=== PATIENT | female | born 1980 | race Caucasian/White ===

== ENCOUNTER → 2018-06-19 10:42 | Outpatient (CLI) | payer MEDICAID, SELFPAY ==
--- NOTE | 2018-06-19 10:50 | MRI_ITS ---
STUDY: MRI BRAIN WITHOUT CONTRAST REASON FOR EXAM: Female, 38 years old. seizures X 1 year. TECHNIQUE: Standardized multiplanar fat and water weighted pulse sequences were obtained. COMPARISON: March 19, 2016 CT of the head FINDINGS: Normal size of the ventricles and extra-axial spaces for the patient's age. Normal white matter tracts of the supratentorial brain. Normal bilateral basal ganglia. Normal thalami. There is no extra-axial fluid accumulation. Normal flow voids within the major intracranial circulation suggesting patency by spin echo criteria. Normal sella turcica, pituitary gland, infundibular stalk, optic chiasm and hypothalamus. Normal tectal plate and pineal gland. Normal midbrain, alina and medulla. Again noted is a stable approximately 8 mm tonsillar ectopia without distortion of the brainstem. Normal basal cisterns. Normal bilateral temporal bones. Normal bilateral internal auditory canals. No demonstrated orbital abnormality, within the constraints of a routine brain study. Normal visualized paranasal sinuses. Normal calvarium and skull base. Normal visualized soft tissue structures. Normal visualized upper cervical spine. MRI/Brain without Contrast IMPRESSION: Tonsillar ectopia. Otherwise unremarkable examination. Electronically Signed: Evette Yadav MD at 8:26 EST Tel , Service support ,
== END ==
PROVIDERS: Family Provider Family Medicine; PCP Family Medicine; Referring Provider Psychiatry & Neurology Neurology; Visit Provider Psychiatry & Neurology Neurology
DX: R56.9 Unspecified convulsions (principal)
CPT/HCPCS: 70551

== ENCOUNTER → 2018-06-20 08:46 | Outpatient (CLI) | payer MEDICAID, SELFPAY ==
--- NOTE | 2018-06-23 13:33 | EEG ---
- Electroencephalogram Date of service 06/20/18 This is an 18 channel electroencephalogram performed utilizing the international 1020 electrode placement protocol on this 38-year-old female with a history of spells described as zoning out associated with rocking lasting approximately 3 minutes. Background activity is 9 Hz symmetrically in the posterior leads which attenuates with eye-opening. Hyperventilation is performed for 3 minutes with good effort with no lateralizing or epileptiform changes in the post hyperventilatory phase is unremarkable. EKG is normal sinus rhythm throughout the recording and photic stimulation generates a normal symmetric driving response in the posterior leads. The patient remained awake throughout the recording without lateralizing or epileptiform changes. Impression: Normal awake electroencephalogram
== END ==
PROVIDERS: Family Provider Family Medicine; PCP Family Medicine; Referring Provider Psychiatry & Neurology Neurology; Visit Provider Psychiatry & Neurology Neurology
DX: R56.9 Unspecified convulsions (principal)
CPT/HCPCS: 95819

== ENCOUNTER 2019-03-31 19:18 | Emergency (ER) | payer MEDICAID, SELFPAY ==
[2019-03-31 19:19] VITALS: BP 124/96; PULSE 117; RESP 15; TEMP 37; O2SAT 97; BMI 27.1
--- NOTE | 2019-03-31 21:32 | RAD_ITS ---
STUDY: X-RAY - LUMBAR SPINE REASON FOR EXAM: Female, 38 years old. Injury 2 days ago TECHNIQUE: 3 view(s) of the lumbar spine were obtained. COMPARISON: None FINDINGS: Normal lumbar lordosis. There is no substantial scoliosis. There is a normal alignment of the vertebrae. Normal vertebral bodies and endplates. Normal disc space heights. The soft tissue structures are unremarkable. RAD/Lumbar Spine 2 or 3 Views IMPRESSION: Normal x-ray examination of the lumbar spine. Electronically Signed: Rc Quiroz MD at 21:55 EST , Service support ,
[2019-03-31] MEDS: HYDROcodone Bitartrate/Apap 5/325 Tablet PO (21:47)
--- NOTE | 2019-03-31 22:10 | ED.VISSUMM ---
- ER Visit Summary Date of Service: 03/31/19 Chief Complaint: Back pain History of Present Illness: The patient is a 38 F who presents with back pain that began after a fall 2 days ago. Patient states she slipped on ice and fell backwards and landed on her low back. Patient states the pain is sharp and stabbing. Patient states the pain is worse with any movement and with weightbearing on her right leg. Patient states nothing seems to help with the pain. Patient states the pain radiates down her right leg. Patient denies any bowel or bladder changes. Patient denies any saddle anesthesia. Patient does admit to some tingling down her right leg. Physical Examination: Vital signs are stable. Patient is afebrile. Patient is in no acute distress. Musculoskeletal exam reveals tenderness over the lumbar spine and paraspinal area. There is no edema or ecchymosis noted. There are no abrasions noted. There is no bony crepitance or step-off noted. Range of motion was slightly limited in all motions of the lumbar spine secondary to pain. Strength is 5/5 bilaterally in the lower extremities. Deep tendon reflexes are 2+/4 bilaterally in the lower extremities. There are no sensory deficits noted. Test Results: X-rays of the lumbar spine were obtained. There is no acute fracture, spondylolisthesis or spondylolysis. These were interpreted by the radiologist and reviewed by myself. Emergency Department Course and Treatment: Patient was given a dose of Souris here. Patient was instructed to use ice to the area. Patient was instructed to follow-up with her primary care physician in 5 to 7 days. Patient was given a prescription for Naprosyn. Patient understood and was agreeable with the plan. All questions were answered. Disposition: Discharge home Impression: Acute lumbar strain This note was generated with [employer] dictation software. It may contain incorrect words, spelling, and punctuation that were not noted in review of the chart prior to signing ED Disposition - Plan for ED Patient: Disposition: Home or Assisted Living Diagnosis: Acute lumbar myofascial strain Instructions: Back Sprain/Strain Prescriptions: Naproxen [Naprosyn] 500 mg PO BID PRN #20 tab Prescription Printed Referrals: Judit Vilchis, AMANDA-C [Primary Care Provider] - 5-7 Days
[2019-03-31 22:25] VITALS: BP 114/89; PULSE 89; RESP 16; O2SAT 99
== END 2019-03-31 22:26 | disposition home or self-care (01) ==
PROVIDERS: Emergency Provider Emergency Medicine; Family Provider Nurse Practitioner Family; PCP Nurse Practitioner Family
DX: S39.012A Strain of muscle, fascia and tendon of lower back, initial encounter (principal); W00.0XXA Fall on same level due to ice and snow, initial encounter; Y93.9 Activity, unspecified; I10 Essential (primary) hypertension; J45.909 Unspecified asthma, uncomplicated; F31.9 Bipolar disorder, unspecified; F17.200 Nicotine dependence, unspecified, uncomplicated; Z79.899 Other long term (current) drug therapy
CPT/HCPCS: 72100; 99283

== ENCOUNTER 2019-07-11 22:24 | Emergency (ER) | payer MEDICAID, SELFPAY ==
[2019-07-11 22:27] VITALS: BP 147/79; PULSE 102; RESP 20; TEMP 36.6; O2SAT 99; BMI 28.3
[2019-07-11] MEDS: Acetaminophen 500 MG Tablet 1000 MG PO (23:35)
[2019-07-11] MEDS: Ibuprofen 600 MG Tablet PO (23:35)
--- NOTE | 2019-07-11 23:45 | RAD_ITS ---
STUDY: X-RAY CHEST REASON FOR EXAM: Female, 39 years old patient with cough for two days and shortness of breath. TECHNIQUE: PA and lateral views of the chest. COMPARISON: March 19, 2016. FINDINGS: The lungs are clear and expanded. There is pleural fibrotic thickening of the pulmonary lung apices. There is borderline cardiomegaly. Normal mediastinum and marley. Normal visualized pulmonary arteries. Normal visualized aortic arch and descending thoracic aorta. There is demineralization of the osseous structures. Normal visualized ribs, clavicles, and shoulders. There is no demonstrated abnormality of the visualized soft tissue structures of the upper abdomen. Surgical clips are visible in the right upper quadrant. RAD/Chest PA and Lateral IMPRESSION: No radiographic evidence of acute cardiopulmonary disease. Electronically Signed: Aisha Monroe MD at 0:25 EST , Service support ,
[2019-07-12 00:22] LABS: Color, Urine Yellow (Yellow); Glucose, Dipstick Normal (Normal); Ketone-Dipstick 5 mg/dl (Negative); Leukocyte Esterase-Dipstick 500 /ul (Negative); Nitrite-Dipstick Negative (Negative); Occult Blood-Urine 250 /ul (Negative); Protein-Dipstick 30 mg/dl (Negative); Urine Bilirubin Dipstick Negative (Negative); Urine Clarity Cloudy (Clear); Urine Urobilinogen 1 mg/dl (Normal)
[2019-07-12 00:36] LABS: Red Blood Cells-Urine 25-50 SEEN /hpf (0-5); Squamous Epithelial Cells - UA 5-10 SEEN /hpf (5-10); White Blood Cells 50-100 SEEN /hpf (0-5)
[2019-07-12 00:37] LABS: Bacteria 1+ /hpf (None Seen); Mucous, Urine 1+ /hpf (<or=2+)
--- NOTE | 2019-07-12 00:50 | ED.DCSUM_ITS ---
- ER Visit Summary Date of Service: 07/12/19 Chief Complaint: Cough History of Present Illness: The patient is a [address] Vilchis. She has a cough began 2 days ago. She had a fever to 102 degrees. She has bilateral ear pain and a sore throat. She is also had congestion. She denies any shortness of breath. She does have diffuse myalgias and arthralgias. She also reports she has dysuria and hematuria that began today. She did not get a flu shot. She is status post hysterectomy. Physical Examination: Vitals: Stable. Afebrile. General: Well-nourished and well-developed. Head: Normocephalic atraumatic. HEENT: Pharyngeal erythema. No tonsillar exudate or enlargement. Neck: Supple, no lymphadenopathy. No JVD. Nontender. Cardiovascular: Regular rate and rhythm. No murmurs. Respiratory: No respiratory distress. Clear to auscultation bilaterally. Abdominal: Soft, nontender, nondistended, normal bowel sounds. No guarding, rebound, or peritoneal signs. Back: Nontender. Extremities: Nontender, no edema. Skin: Normal color, no rash. Neurologic: Alert and oriented ?3. Cranial nerves II through XII are intact. Normal strength and sensation. Psych: Normal affect. Test Results: Chest x-ray shows no acute disease. Urinalysis does show UTI. Emergency Department Course and Treatment: Urine was sent for culture. She has multiple allergies. She was given Keflex. Clinically the patient has inf luenza. She is given Tylenol and ibuprofen. We discussed Tamiflu. I do not feel that it is indicated or in her best interest. Treatment Plan: Patient will be discharged with Keflex and symptomatic care for her influenza. Follow-up with her primary care physician 1 week if not improving. Return to the emergency department for any worsening symptoms. Disposition: To home in improved and stable condition. Impression: 1. UTI. 2. Influenza. This note was generated with [employer] dictation software. It may contain incorrect words, spelling, and punctuation that were not noted in review of the chart prior to signing ED Disposition - Plan for ED Patient: Disposition: Home or Assisted Living Instructions: Understanding Urinary Tract Infections (UTIs), INFLUENZA (Adult) Prescriptions: Nitrofurantoin Macrocrystals [Macrobid] 100 mg PO Q12 #14 cap Prescription Printed Referrals: Judit Vilchis, [employer]IST-C [Primary Care Provider] -
[2019-07-12] MEDS: Nitrofurantoin Macrocrystals 100 MG Capsule PO (00:56)
[2019-07-12 00:58] VITALS: PULSE 90; RESP 16; O2SAT 95
== END 2019-07-12 00:58 | disposition home or self-care (01) ==
PROVIDERS: Emergency Provider Emergency Medicine; PCP Nurse Practitioner Family
DX: J11.1 Influenza due to unidentified influenza virus with other respiratory manifestations (principal); N39.0 Urinary tract infection, site not specified; I10 Essential (primary) hypertension; J45.909 Unspecified asthma, uncomplicated; F32.9 Major depressive disorder, single episode, unspecified; F41.9 Anxiety disorder, unspecified; F43.10 Post-traumatic stress disorder, unspecified; Z72.0 Tobacco use
CPT/HCPCS: 71046; 81001; 87086; 87088; 99283

== ENCOUNTER 2020-02-20 15:51 | Emergency (ER) | payer MEDICAID, SELFPAY ==
[2020-02-20 15:51] VITALS: BP 147/84; PULSE 103; RESP 18; TEMP 36.2; O2SAT 95
[2020-02-20 15:53] VITALS: BP 147/84; PULSE 103; RESP 18; TEMP 36.2; O2SAT 95; BMI 31.2
--- NOTE | 2020-02-20 16:20 | ED.DCSUM_ITS ---
History of Present Illness Chief Complaint: Cough Informant: Patient Narrative: 39-year-old female with history of asthma presenting with cough, nasal congestion, watery eyes. She states that her eyes nose and throat feels itchy. She states that she was seen at [facility] at the onset and had a chest x-ray which was negative. They did not test her for COVID or other illness. She states she continues to have the same symptoms. She is taking Claritin at home. She has not been taking her Flonase. She denies fever, chills, myalgias, change in taste or smell. She and her boyfriend are both unemployed and stays home and have no sick contacts. She states she continues to smoke cigarettes daily. Past Medical History - Allergies and Home Meds Allergies/Adverse Reactions: Allergies acyclovir Allergy (Verified 07/11/19 22:31) Hives cefdinir Allergy (Verified 07/11/19 22:31) Hives ciprofloxacin [From Cipro] Allergy (Verified 07/11/19 22:31) Hives codeine [From Tylenol-Codeine #3] Allergy (Verified 07/11/19 22:31) Hives phenazopyridine [From Pyridium] Allergy (Verified 07/11/19 22:31) Hives Sulfa (Sulfonamide Antibiotics) Allergy (Verified 07/11/19 22:31) Hives benzonatate [From Tessalon Perles] Adverse Reaction (Verified 02/20/20 15:56) Vomiting Primary Care Physician: Judit Vilchis COMPARISON SHOPPER, COMPARISON SHOPPER-C [Primary Care Provider] - Past Medical History: - - Asthma, hypertension, GERD Surgical History: noncontributory Lives: Spouse/ Significant Other Smoking Status: Current every day smoker Alcohol: None Drugs: None Review of Systems General: Denies: Chills, Fever, Malaise, Sweats Eyes: Denies: Visual changes - bilaterally, Diplopia ENT: Reports: Rhinorrhea. Denies: Sore throat Cardiovascular: Denies: Chest pain, Palpitations Respiratory: Reports: Cough. Denies: Dyspnea, Sputum Gastrointestinal: Denies: Abdominal pain, Nausea, Vomiting, Diarrhea, Melena, Hematochezia Genitourinary: Denies: Dysuria, Hematuria, Frequency Musculoskeletal: Denies: Back pain, Extremity Pain Skin: Denies: Rash, Wounds Neurological: Denies: Headache, Weakness, Numbness Physical Exam Vital Signs/Narrative: Vital Signs Temp Pulse Resp BP Pulse Ox 02/20/20 15:53 97.2 F L 103 H 18 147/84 H 95 02/20/20 15:51 97.2 F L 103 H 18 147/84 H 95 Inital Vital Signs reviewed: Yes General: Well nourished, No Acute Distress Head: Normocephalic, Atraumatic Eyes: Perrl, EOMI ENT: Moist mucous membranes, No rhinorrhea, Nasal congestion Cardiovascular: Regular rate, Regular rhythm Respiratory: No distress, CTA bilaterally, Chest nontender. Negative for: Decreased Air Movement Skin: Normal color, No rash. Negative for: Cyanosis Neurological: Alert, Oriented x3 Psychological: Normal affect, Normal Mood Diagnostic/Tx/Re-eval - Medical Decision Making Patient presents for continued cough. She states she was diagnosed with bronchitis and placed on a prednisone burst. She also has a albuterol inhaler. She was prescribed Tessalon Perles from her previous visit but she said they made her sick. Patient symptoms sound more consistent with an allergic rhinitis and she states that she does have significant allergies. She does not have any myalgias, fever, chills, change in taste or smell. She is not short of breath. She states that he just has trouble sleeping at night because of the cough. Patient was counseled that she would likely benefit from smoking cessation getting at this will prolong her cough. She is also counseled that she could try to take Benadryl in the evening to sleep. I will give her a prescription for Sudafed for daytime. She wished to be tested for COVID?19 and this was performed and is pending. She will quarantine at home. Impression: 1. Allergic rhinitis ED Disposition - Plan for ED Patient: Disposition: Home or Assisted Living Instructions: ED Upper Resp Infec No Abx Tx, Understanding Nasal Allergies Prescriptions: DiphenhydrAMINE [Benadryl] 25 mg PO QHS PRN PRN #30 cap PRN Reason: Congestion Prescription Printed Pseudoephedrine [Sudafed] 60 mg PO Q6H PRN PRN #20 tab PRN Reason: Cough Prescription Printed Referrals: Judit Vilchis COMPARISON SHOPPER, COMPARISON SHOPPER-C [Primary Care Provider] -
[2020-02-20 16:59] VITALS: BP 139/78; PULSE 101; RESP 16; O2SAT 98
== END 2020-02-20 17:01 | disposition home or self-care (01) ==
LOC: ED 16:46
PROVIDERS: Emergency Provider Student in an Organized Health Care Education/Training Program; PCP Nurse Practitioner Family
DX: J45.909 Unspecified asthma, uncomplicated (principal); I10 Essential (primary) hypertension; K21.9 Gastro-esophageal reflux disease without esophagitis; F17.210 Nicotine dependence, cigarettes, uncomplicated
CPT/HCPCS: 87635; 99283; U0003

== ENCOUNTER 2020-05-30 16:42 | Emergency (ER) | payer MEDICAID, SELFPAY ==
[2020-05-30] VITALS (7 sets, daily range): BP systolic 139–169; BP diastolic 72–91; PULSE 93–97; RESP 16–18; TEMP 35.6–36.6; O2SAT 97–100; BMI 28.3
--- NOTE | 2020-05-30 17:05 | CT_ITS ---
STUDY: CT CHEST WITH CONTRAST REASON FOR EXAM: Female, 40 years old. Acute substernal chest pain RADIATION DOSAGE (If Supplied By Facility): CTDIvol = ( 15.54 ) mGy, DLP = ( 686.40 ) mGycm TECHNIQUE: Transaxial imaging was performed following intravenous administration of IV 100mL Isovue-300. Multiplanar coronal and sagittal images were reformatted. Individualized dose optimization techniques were used for this CT. COMPARISON: Previous chest x-rays FINDINGS: Lung windows show the lungs to be normally expanded, there is bilateral bibasilar atelectasis, but no superimposed infiltrate or effusion. There is no demonstrated pleural abnormality. Normal heart and pericardium. Normal mediastinum. Normal hilar regions. Normal enhanced pulmonary arteries. Normal aorta arch and descending thoracic aorta. Normal osseous structures. Limited cuts through the upper abdomen show a previous cholecystectomy CT/Chest WITH Contrast IMPRESSION: Bibasilar atelectasis, no superimposed infiltrate or effusion No suspicious adenopathy Electronically Signed: Ty Rubin MD at 19:05 EST , Service support ,
--- NOTE | 2020-05-30 17:06 | ED.DCSUM_ITS ---
History of Present Illness Chief Complaint: Wound Check Informant: Patient Onset: Days Context: Gradual Onset Current Severity: Moderate Maximum Severity: Severe Narrative: Patient presents secondary to postop wound infection. She states she had a mass removed from under her left arm [address] Anderson Monroe in [place]. On the she had her sutures removed. Patient states 2 days later she started having increased pain to the left axilla with some drainage. No fever or chills. She states she tried to call the doctor's office today but only got voicemail. She states the pain is so severe she has had an increase in her stress seizures. - Past Medical History (1) Bipolar disorder Status: Chronic (2) Kidney stones Status: Chronic (3) Hypertension Status: Chronic (4) High cholesterol Status: Chronic (5) Asthma Status: Chronic (6) GERD (gastroesophageal reflux disease) Status: Chronic Past Medical History - Allergies and Home Meds Allergies/Adverse Reactions: Allergies acyclovir Allergy (Verified 05/30/20 16:45) Hives cefdinir Allergy (Verified 05/30/20 16:45) Hives ciprofloxacin [From Cipro] Allergy (Verified 05/30/20 16:45) Hives codeine [From Tylenol-Codeine #3] Allergy (Verified 05/30/20 16:45) Hives phenazopyridine [From Pyridium] Allergy (Verified 05/30/20 16:45) Hives Sulfa (Sulfonamide Antibiotics) Allergy (Verified 05/30/20 16:45) Hives benzonatate [From Tessalon Perles] Adverse Reaction (Verified 05/30/20 16:45) Vomiting Primary Care Physician: Judit Vilchis COTTON ROLL PACKER, C[employer] ROLL PACKER-C [Primary Care Provider] - Prior records reviewed: Yes Surgical History: noncontributory Smoking Status: Current every day smoker Review of Systems General: Denies: Chills, Fever Eyes: Denies: Visual changes - bilaterally ENT: Denies: Bilateral ear pain Cardiovascular: Denies: Chest pain Respiratory: Denies: Dyspnea, Cough Gastrointestinal: Denies: Abdominal pain Musculoskeletal: Reports: Extremity Pain Skin: Reports: Wounds Neurological: Denies: Weakness, Parasthesia Hematologic: Denies: Easy bruising, Easy bleeding Allergy: Denies: Uticaria Physical Exam Vital Signs/Narrative: Vital Signs Temp Pulse Resp BP Pulse Ox 05/30/20 16:43 96.0 F L 97 16 169/83 H 100 Inital Vital Signs reviewed: Yes General: Well nourished, Well developed Head: Normocephalic ENT: Moist mucous membranes Neck: Supple Cardiovascular: Regular rate, Regular rhythm Respiratory: No distress, CTA bilaterally Abdomen: Soft, Nontender Extremities: - - Patient is able to lift her left arm for examination of the wound. There is an approximately 6 cm long healing incision noted to the left axilla. The center portion of the wound has mild dehiscence. No surrounding cellulitis. Neurological: Alert, Oriented x3 Psychological: - - Anxious Diagnostic/Tx/Re-eval Impressions Chest CT 05/30/20 17:05 IMPRESSION: Bibasilar atelectasis, no superimposed infiltrate or effusion No suspicious adenopathy Electronically Signed: Ty Rubin MD at 19:05 EST , Service support , 05/30/20 17:05 CT Chest [Chest WITH Contrast] [CT] Stat Laboratory Results 05/30/20 05/30/20 18:00 18:00 WBC 11.4 H RBC 5.10 Hgb 13.4 Hct 40.9 MCV 80.2 L MCH 26.3 L MCHC 32.8 RDW Std Deviation 42.9 RDW Coeff of Gabbi 14.6 Plt Count 343 MPV 8.7 Immature Gran % (Auto) 0.400 Neut % (Auto) 57.7 Lymph % (Auto) 30.1 [place] % (Auto) 7.5 Eos % (Auto) 3.6 Baso % (Auto) 0.7 Absolute Neuts (auto) 6.6 Absolute Lymphs (auto) 3.44 Nucleated RBC % 0 Sodium 139 Potassium 3.4 L Chloride 106 Carbon Dioxide 25.0 Anion Gap 8 BUN 11 Creatinine 0.88 Estim Creat Clear Calc 70.30 Est GFR (MDRD) Af Amer 92 Est GFR (MDRD) Non-Af 76 BUN/Creatinine Ratio 12.5 Glucose 87 Calcium 9.6 - Medical Decision Making Patient was given morphine and Zofran for pain control. Blood work is largely unremarkable. Very mild leukocytosis noted. CT scan reveals no evidence of abscess. On my review of the images she has some slight stranding noted to the left axilla but no focal fluid collection. Patient will be given [place] for home along with doxycycline. She will contact her surgeon tomorrow for follow-up. ED Disposition - Plan for ED Patient: Disposition: Home or Assisted Living Diagnosis: Postoperative wound infection Instructions: ED Wound Infection after surgery Prescriptions: Doxycycline 100 mg PO BID #20 cap Transmission Status: Pending to [id number] Hydrocodone Bitart/Apap 5-325 [[place] 5MG-325MG] 1 tablet PO Q6H PRN PRN 3 Days #10 tablet PRN Reason: Pain Transmission Status: Sent to [id number] Referrals: Judit Vilchis NP, C[employer] ROLL PACKER-C [Primary Care Provider] - Additional Instructions: Follow-up with your surgeon in the next 3-5 days.
[2020-05-30] MEDS: Morphine 4 MG/ML Syringe IV (17:59)
[2020-05-30] MEDS: Ondansetron 4 MG/2 ML Vial IV (17:59)
[2020-05-30 18:14] LABS: Absolute Lymphocyte Count 3.44 X10^3/uL (0.83-4.51); Absolute Neutrophil Count 6.6 X10^3/uL (2.0-7.7); Basophil# 0.08 X10^3/uL; Basophil% 0.7 % (0-1); Eosinophil# 0.41 X10^3/uL; Eosinophils% 3.6 % (0-5); Hematocrit 40.9 % (37-47); Hemoglobin 13.4 g/dL (12.0-15.0); Lymphocyte # 3.44 X10^3/ul (4.0); Lymphocyte % 30.1 % (19-41); Mean Corp Hgb Conc 32.8 g/dL (32-36); Mean Corpuscular Hgb 26.3 pg (27.0-32.0); Mean Corpuscular Volume 80.2 fL (81-99); Mean Platelet Vol. 8.7 fl (6.2-12.0); Monocyte# 0.86 X10^3/uL; Monocyte% 7.5 % (0-10); NRBC Flagged by Analyzer 0 % (0-5); Neutrophil # 6.58 X10^3/uL (2.7-7.7); Neutrophil % 57.7 % (47-70); Platelet Count 343 K/mm3 (150-450); RBC Distribution Width CV 14.6 % (11.6-14.6); RBC Distribution Width SD 42.9 fl (35.1-43.9); White Blood Count 11.4 K/mm3 (4.4-11.0)
[2020-05-30 18:30] LABS: Anion Gap 8 (5-15); BUN 11 mg/dL (7-18); BUN/Creat Ratio 12.5 RATIO (10-20); Calcium,Total 9.6 mg/dL (8.5-10.1); Chloride 106 mmol/L (98-107); Creatinine, Serum 0.88 mg/dL (0.55-1.02); EST Glomerular Filtration Rate 76 mL/min (>60); Est Glom Filt Rate - Afr Amer 92 mL/min (>60); Glucose 87 mg/dL (74-106); Potassium 3.4 mmol/L (3.5-5.1); Sodium Level 139 mmol/L (136-145)
[2020-05-30] MEDS: HYDROcodone Bitartrate/Apap 5/325 Tablet PO (20:08)
[2020-05-30] MEDS: Doxycycline 100 MG CAPSULE PO (20:08)
== END 2020-05-30 20:17 | disposition home or self-care (01) ==
PROVIDERS: Emergency Provider Emergency Medicine; PCP Nurse Practitioner Family
DX: T81.41XA Infection following a procedure, superficial incisional surgical site, initial encounter (principal); T81.31XA Disruption of external operation (surgical) wound, not elsewhere classified, initial encounter; I10 Essential (primary) hypertension; E78.00 Pure hypercholesterolemia, unspecified; F31.9 Bipolar disorder, unspecified; F17.200 Nicotine dependence, unspecified, uncomplicated; Z79.899 Other long term (current) drug therapy
CPT/HCPCS: 71260; 80048; 85025; 87040; 96374; 96375; 99285; Q9967; A4216; J2405

== ENCOUNTER 2020-11-24 14:12 | Emergency (ER) | payer MEDICAID, SELFPAY ==
[2020-05-30 16:43] VITALS: BMI 28.3
[2020-11-24 14:13] VITALS: BP 123/79; PULSE 122; RESP 16; TEMP 36.9; O2SAT 96; BMI 31.9
--- NOTE | 2020-11-24 14:28 | EKG12_ITS ---
Test Reason : CP Blood Pressure : / mmHG Vent. Rate : 102 BPM Atrial Rate : 102 BPM P-R Int : 130 ms QRS Dur : 062 ms QT Int : 306 ms P-R-T Axes : 052 035 084 degrees QTc Int : 398 ms Sinus tachycardia Nonspecific T wave abnormality Abnormal ECG Confirmed by ALEXUS QUINTANA, PRADEEP ([id number]), material expeditor SORAYA BAILEY ([id number]) on 11/28/2020 9:41:28 AM Referred By: ELISEO Confirmed By:SERJIO VAUGHAN MD
--- NOTE | 2020-11-24 16:15 | EX.ED.DYSGE1 ---
HPI History of Present Illness Chief Complaint: Anxiety Detail of Chief Complaint: Patient with anxiety reaction for the last 2 to 3 days Informant: patient Narrative Narrative: Patient presents to the emergency department stating that she has been feeling very anxious for the last 2 to 3 days. She has had similar symptoms like this in the past but does not take anything for anxiety. Patient describes racing heart and feeling jittery. Patient complains of feeling that she cannot get a full breath and feeling like she cannot swallow right. Patient denies suicidal or homicidal ideations. She denies recent illness. Prior similar symptoms: Yes [facility] Medical History (Updated 11/24/20 @ 17:[address] Marlen Syed, DO) Anxiety Depression Home Medications amlodipine 10 mg PO DAILY 02/16/16 [History Last Taken 02/16/16] lamotrigine 150 mg PO BID 02/16/16 [History Last Taken 02/16/16] ipratropium-albuterol 3 ml INHALATION Q4H PRN PRN 11/09/16 [History Last Taken Unknown] metoprolol tartrate 100 mg PO BID 11/09/16 [History Last Taken Unknown] Potassium Chloride 80 meq PO DAILY 03/31/19 [History Last Taken Unknown] amitriptyline 100 mg PO DAILY 03/31/19 [History Last Taken Unknown] cetirizine 10 mg PO DAILY 03/31/19 [History Last Taken Unknown] cyanocobalamin (vitamin B-12) 1,000 mcg PO DAILY 03/31/19 [History Last Taken Unknown] estradiol 0.5 mg PO DAILY 03/31/19 [History Last Taken Unknown] omeprazole 20 mg PO DAILY 03/31/19 [History Last Taken Unknown] oxybutynin chloride 5 mg PO DAILY 03/31/19 [History Last Taken Unknown] albuterol sulfate 2 puff INHALATION Q4H PRN PRN 07/11/19 [History Last Taken Unknown] duloxetine 60 mg PO DAILY 07/11/19 [History Last Taken Unknown] ipratropium-albuterol 1 puff INHALATION 4X/DAY 07/11/19 [History Last Taken Unknown] prazosin 2 mg PO QHS 07/11/19 [History Last Taken Unknown] doxycycline monohydrate 100 mg PO BID #20 cap 05/30/20 [Rx Last Taken Unknown] lorazepam 1 mg PO TID #10 tablet 11/24/20 [Rx Last Taken Unknown] Allergy/AdvReac Type Severity Reaction Status Date / Time acyclovir Allergy Hives Verified 11/24/20 14:13 cefdinir Allergy Hives Verified 11/24/20 14:13 ciprofloxacin [From Cipro] Allergy Hives Verified 11/24/20 14:13 codeine Allergy Hives Verified 11/24/20 14:13 [From Tylenol-Codeine #3] phenazopyridine Allergy Hives Verified 11/24/20 14:13 [From Pyridium] Sulfa (Sulfonamide Allergy Hives Verified 11/24/20 14:13 Antibiotics) benzonatate AdvReac Vomiting Verified 11/24/20 14:13 [From Tesbrice Hannon] Social History Smoking Status: Current every day smoker tobacco type: cigarettes ROS ROS ED Constitutional Constitutional ED: Reports systems reviewed and no addt'l complaints, except as documented; Denies body ache(s), change in weight or chills Eyes Eyes: Denies acute decrease in peripheral vision, change in vision, double vision or loss of vision ENT ENT ED: Reports none; Denies ear pain, lip swelling, loss taste/smell, neck pain, otalgia or sore throat Cardiovascular Cardiovascular: Reports none; Denies abdominal pain, chest pain with activity, leg edema, lightheadedness, palpitations, rapid heart rate or syncope Respiratory/Chest Respiratory/Chest: Reports none; Denies change in mental status, dry cough, dyspnea, hemoptysis, shortness of breath at rest or shortness of breath with exertion Gastrointestinal Gastrointestinal: Reports none; Denies abdominal pain, change in stool character, diarrhea, hematemesis, hematochezia, melena, rectal bleeding or vomiting Genitourinary Genitourinary ED: Reports none; Denies abdominal discomfort, anuria, dysuria, genital pain or polyuria Musculoskeletal Musculoskeletal: Reports none; Denies arthralgias, back pain, difficulty walking, extremity pain, muscle weakness or myalgias Integumentary Reports none; Denies abscess or rash Neurologic Neurologic: Reports none; Denies abnormal gait, confusion, focal weakness, frequent falls, headache(s), loss of vision, numbness, paresthesias, radicular pain, vertigo or weakness Psychiatric Psychiatric: Reports systems reviewed and no addt'l complaints, except as documented, none and anxiety; Denies behavioral changes, confusion, difficulty concentrating, hallucinations, suicidal ideation, tactile hallucinations or visual hallucinations Endocrine Endocrinology: Denies none, cold intolerance, excessive sweating, fatigue or heat intolerance Hematologic/Lymphatic Hematologic/Lymphatic: Reports none; Denies anemia, easy bleeding or easy bruising Allergic/Immunologic Allergic/Immunologic ED: Denies as per HPI, none, lip swelling, mouth swelling, throat swelling, tongue swelling or hives EXAM Physical Exam Const Vital Signs: 11/24/20 14:13 Temperature 98.5 F Temperature Source Temporal Pulse Rate 122 H Respiratory Rate 16 Blood Pressure 123/79 H Blood Pressure Mean 93 Pulse Ox 96 Oxygen Delivery Method Room Air Positive well nourished and well developed General Appearance ED: well developed and NAD HEENT Reports TM's clear and moist mucous membranes normocephalic and atraumatic; Negative for trauma or tenderness Tympanic Membrane ED: Yes TM's clear Eyes PERRL and EOMs intact bilaterally General Eye ED: Negative for pale conjunctiva or scleral icterus Neck no lymphadenopathy, supple and no JVD General: Negative for tenderness Chest Wall inspection of chest normal and palpation of chest normal Chest: Negative for tenderness Resp normal respiratory effort and clear to auscultation bilaterally Effort and Inspection: Negative for respiratory distress or pain with movement Auscultation: Negative for rhonchi, wheezes or diminished lung sounds Cardio regular rate, regular rhythm, S1 normal heart sound, S2 normal heart sound and no murmurs Peripheral Pulses: pulses 2+ throughout GI normal to inspection, nondistended, normoactive bowel sounds, soft to palpation, non-tender, non-distended and no masses Back/Spine no CVA tenderness and no thoracic nor lumbar tenderness Extremity normal to inspection General Extremety ED: Negative for edema General Extremity: Negative for edema Neuro oriented x3, CN's II-XII intact bilaterally, no sensory deficits noted and gait normal Sensorium / Orientation: awake, alert, oriented to person, oriented to place and oriented to time Motor Exam: strength 5/5 throughout and strength abnormal Psych mental status grossly normal Skin no rashes or lesions noted and no wounds MDM MDM MDM Narrative Medical decision making narrative: Patient was given Ativan 1 mg p.o. She was observed in the department. She felt markedly improved after treatment. At this point she will be given a prescription for as needed Ativan and advised to follow-up with her primary care physician within next 3 to 5 days. EKG Initial EKG: Attestation: I personally reviewed and interpreted this EKG as follows: Comments: Sinus rhythm with a ventricular rate of 102 bpm with some nonspecific ST changes. Prior EKG tracings: not available for review Discharge Plan Triage Chief Complaint: Anxiety ED Provider: Marlen Syed Dx/Rx/DC Orders Clinical Impression: Anxiety reaction Instructions: ED Anxiety Reaction Prescriptions: New lorazepam [lorazepam] 1 MG tablet 1 mg PO TID Qty: 10 RF: 0 No Action lamotrigine 150 MG tablet 150 mg PO BID RF: 0 amlodipine 10 MG tablet 10 mg PO DAILY RF: 0 ipratropium-albuterol 3 ML solution for nebulization 3 ml inhalation Q4H PRN PRN (Reason: Sob &/Or Wheezing) RF: 0 metoprolol tartrate 25 MG tablet 100 mg PO BID RF: 0 cyanocobalamin (vitamin B-12) 500 MCG tablet 1,000 mcg PO DAILY RF: 0 omeprazole 20 MG capsule 20 mg PO DAILY RF: 0 estradiol 0.5 MG tablet 0.5 mg PO DAILY RF: 0 oxybutynin chloride 5 MG tablet 5 mg PO DAILY RF: 0 amitriptyline 100 MG tablet 100 mg PO DAILY RF: 0 cetirizine 10 MG capsule 10 mg PO DAILY RF: 0 Potassium Chloride 20 MEQ Tab.Er.Prt 80 meq PO DAILY RF: 0 albuterol sulfate 1 INHALER inhaler 2 puff inhalation Q4H PRN PRN (Reason: Sob &/Or Wheezing) RF: 0 prazosin 2 MG capsule 2 mg PO QHS RF: 0 duloxetine 60 MG capsule 60 mg PO DAILY RF: 0 ipratropium-albuterol 1 PUFF inhaler 1 puff inhalation 4X/DAY RF: 0 doxycycline monohydrate 100 MG capsule 100 mg PO BID Qty: 20 RF: 0 Primary Care Provider: Judit Vilchis NP Referrals: Judit Vilchis NP, [employer] [Primary Care Provider] - Disposition Disposition: Home, Self Care
[2020-11-24] MEDS: LORazepam 1 MG Tablet PO (16:35)
== END 2020-11-24 17:16 | disposition home or self-care (01) ==
PROVIDERS: Emergency Provider Emergency Medicine; PCP Nurse Practitioner Family
DX: F41.1 Generalized anxiety disorder (principal); F32.9 Major depressive disorder, single episode, unspecified; F17.210 Nicotine dependence, cigarettes, uncomplicated
CPT/HCPCS: 93005; 99283

== ENCOUNTER 2021-01-28 19:30 | Emergency (ER) | payer MEDICAID, SELFPAY ==
[2021-01-28 19:31] VITALS: BP 154/93; PULSE 116; RESP 16; TEMP 36.4; O2SAT 97; BMI 32.8
--- NOTE | 2021-01-28 19:46 | CT_ITS ---
STUDY: CT ABDOMEN AND PELVIS WITH CONTRAST REASON FOR EXAM: Female, 40 years old. Abdominal pain nausea RADIATION DOSAGE (If Supplied By Facility): CTDIvol = ( 19.68 ) mGy, DLP = ( 1207.25 ) mGycm TECHNIQUE: CT images were obtained from the dome of the diaphragm to the symphysis pubis without oral contrast. IV 100mL Isovue-300 was administered. Sagittal and coronal images were reconstructed. Individualized dose optimization techniques were used for this CT. COMPARISON: 16 May 2016 FINDINGS: There are ill-defined groundglass irregularly-shaped basal opacities. Lungs are incompletely evaluated. There are minimal bilateral pleural effusions. Normal liver. Normal gallbladder is removed. Gallbladder and extrahepatic biliary system. Normal spleen. Normal pancreas. Normal bilateral adrenal glands. Normal right kidney. Normal left kidney. There is no intestinal obstruction. Appendix is not seen. Normal abdominal aorta. Normal inferior vena cava. Normal retroperitoneum. Normal urinary bladder. Normal abdominal wall. Normal osseous structures. CT/Abdomen/Pelvis W IV Cont ONLY IMPRESSION: Questionable pulmonary opacities, consider Covid infection, recommend definitive chest imaging. No abdominal abnormality. Electronically Signed: Ayleen Valle MD at 22:01 EDT Tel , Service support ,
--- NOTE | 2021-01-28 19:47 | EDS_ITS ---
HPI History of Present Illness Chief Complaint: Abd Pain Informant: patient Narrative Narrative: 40-year-old female presents for the evaluation of lower abdominal pain. The patient states that for the past 3 days she has felt that her insides are coming out. When asked to describe further she tells me that she feels a lot of pressure in her lower pelvis. She notes urinary frequency but no dysuria. She notes nausea but no vomiting. She notes a normal bowel movement this morning. No fevers. She is had a prior hysterectomy and cholecystectomy. She notes to colonoscopies for polyps. [facility] Medical History (Updated 01/28/21 @ 22:[address] Koby Mello, DO) Anxiety Asthma Bipolar disorder Depression GERD (gastroesophageal reflux disease) High cholesterol Hypertension Kidney stones Home Medications amlodipine 10 mg PO DAILY 02/16/16 [History Last Taken 02/16/16] lamotrigine 150 mg PO BID 02/16/16 [History Last Taken 02/16/16] ipratropium-albuterol 3 ml INHALATION Q4H PRN PRN 11/09/16 [History Last Taken Unknown] metoprolol tartrate 100 mg PO BID 11/09/16 [History Last Taken Unknown] Potassium Chloride 80 meq PO DAILY 03/31/19 [History Last Taken Unknown] amitriptyline 100 mg PO DAILY 03/31/19 [History Last Taken Unknown] cetirizine 10 mg PO DAILY 03/31/19 [History Last Taken Unknown] cyanocobalamin (vitamin B-12) 1,000 mcg PO DAILY 03/31/19 [History Last Taken Unknown] estradiol 0.5 mg PO DAILY 03/31/19 [History Last Taken Unknown] omeprazole 20 mg PO DAILY 03/31/19 [History Last Taken Unknown] oxybutynin chloride 5 mg PO DAILY 03/31/19 [History Last Taken Unknown] albuterol sulfate 2 puff INHALATION Q4H PRN PRN 07/11/19 [History Last Taken Unknown] duloxetine 60 mg PO DAILY 07/11/19 [History Last Taken Unknown] ipratropium-albuterol 1 puff INHALATION 4X/DAY 07/11/19 [History Last Taken Unknown] prazosin 2 mg PO QHS 07/11/19 [History Last Taken Unknown] doxycycline monohydrate 100 mg PO BID #20 cap 05/30/20 [Rx Last Taken Unknown] lorazepam 1 mg PO TID #10 tablet 11/24/20 [Rx Last Taken Unknown] dicyclomine 20 mg PO TIDAC #20 capsule 01/28/21 [Rx Last Taken Unknown] Allergy/AdvReac Type Severity Reaction Status Date / Time acyclovir Allergy Hives Verified 01/28/21 19:30 cefdinir Allergy Hives Verified 01/28/21 19:30 ciprofloxacin [From Cipro] Allergy Hives Verified 01/28/21 19:30 codeine Allergy Hives Verified 01/28/21 19:30 [From Tylenol-Codeine #3] phenazopyridine Allergy Hives Verified 01/28/21 19:30 [From Pyridium] Sulfa (Sulfonamide Allergy Hives Verified 01/28/21 19:30 Antibiotics) benzonatate AdvReac Vomiting Verified 01/28/21 19:30 [From Tessalon Perles] Surgical History (Updated 01/28/21 @ 19:[address] Koby Mello DO) History of hysterectomy Hx of cholecystectomy Social History (Updated 01/28/21 @ 19:[address] Koby Mello DO) Smoking Status: Current every day smoker tobacco type: cigarettes substance use type: does not use ROS ROS ED Constitutional Constitutional ED: Denies chills or weight loss Eyes Eyes: Denies change in vision or diplopia ENT ENT ED: Denies ear pain, rhinorrhea or sore throat Cardiovascular Cardiovascular: Denies chest pain, orthopnea, palpitations or racing heartbeat Respiratory/Chest Respiratory/Chest: Denies cough, dyspnea or orthopnea Gastrointestinal Gastrointestinal: Reports abdominal pain and nausea; Denies diarrhea or vomiting Genitourinary Genitourinary ED: Reports urinary frequency; Denies dysuria or hematuria Musculoskeletal Musculoskeletal: Denies arthralgias or myalgias Integumentary Denies abscess or rash Neurologic Neurologic: Denies headache(s) or weakness Psychiatric Psychiatric: Denies anxiety, depression, suicidal ideation or suicidal thoughts Endocrine Endocrinology: Denies polydipsia, polyphagia or polyuria Allergic/Immunologic Allergic/Immunologic ED: Denies mouth swelling, tongue swelling or urticaria EXAM Physical Exam Const Vital Signs: 01/28/21 19:31 Temperature 97.5 F L Temperature Source Temporal Pulse Rate 116 H Respiratory Rate 16 Blood Pressure 154/93 H Blood Pressure Mean 113 Pulse Ox 97 Oxygen Delivery Method Room Air Positive well nourished and well developed General Appearance ED: well developed HEENT Reports normocephalic, head/scalp atraumatic and moist mucous membranes Eyes PERRL and EOMs intact bilaterally Neck no lymphadenopathy, supple and no JVD Resp normal respiratory effort and clear to auscultation bilaterally Cardio regular rate, regular rhythm and no murmurs GI Palpation: soft and tender RLQ and suprapubic Back/Spine no CVA tenderness and normal ROM Extremity normal to inspection General Extremety ED: Negative for edema General Extremity: Negative for edema Neuro oriented x3 and CN's II-XII intact bilaterally Sensorium / Orientation: alert Motor Exam: strength 5/5 throughout Psych mental status grossly normal Mood & Affect: Negative for depressed or tearful Skin no rashes or lesions noted and no wounds MDM MDM MDM Narrative Medical decision making narrative: Basic blood work showed a white count of 11.2. CMP with glucose of 130. Urinalysis negative. CT of the pelvis did not demonstrate anything acute really to explain her symptoms. Patient's not having fevers or really any Covid symptoms I do not think we need to test her for Covid at this time. Patient does not wish a Covid test actually. She will be discharged home. Lab Data Attestation: I reviewed the patient's lab results. Labs: Laboratory Results - last 24 hr 01/28/21 01/28/21 01/28/21 20:04 20:42 20:42 WBC 11.2 H RBC 4.81 Hgb 13.1 Hct 38.9 MCV 80.9 L MCH 27.2 MCHC 33.7 RDW Std Deviation 41.8 RDW Coeff of Gabbi 14.2 Plt Count 325 MPV 8.7 Immature Gran % (Auto) 0.400 Neut % (Auto) 60.4 Lymph % (Auto) 29.6 [place] % (Auto) 7.9 Eos % (Auto) 1.3 Baso % (Auto) 0.4 Absolute Neuts (auto) 6.8 Absolute Lymphs (auto) 3.31 Nucleated RBC % 0 Differential Comment SCANNED Platelet Estimate ADEQUATE RBC Morphology NORM C+C Sodium 134 L Potassium 3.2 L Chloride 103 Carbon Dioxide 24.0 Anion Gap 7 BUN 7 Creatinine 0.95 Estim Creat Clear Calc 65.12 Est GFR (MDRD) Af Amer 83 Est GFR (MDRD) Non-Af 69 BUN/Creatinine Ratio 7.3 L Glucose 130 H Calcium 8.9 Total Bilirubin 0.30 AST 11 L ALT 17 Alkaline Phosphatase 108 Total Protein 7.7 Albumin 3.2 Globulin 4.5 H Albumin/Globulin Ratio 0.7 L Urine Color Yellow Urine Clarity Clear Urine pH 7.0 Ur Specific [place] 1.010 Urine Protein Negative Urine Glucose (UA) Normal Urine Ketones Negative Urine Occult Blood 10 H Urine Nitrite Negative Urine Bilirubin Negative Urine Urobilinogen Normal Ur Leukocyte Esterase Negative Urine RBC 0-5 SEEN Urine WBC 0-5 SEEN Ur Squamous Epith Cells 0-5 SEEN Urine Bacteria RARE Urine Mucus 0 SEEN Radiography Diagnostic Testing: Radiology Impression Abdomen/Pelvis CT 01/28/21 19:46 IMPRESSION: Questionable pulmonary opacities, consider Covid infection, recommend definitive chest imaging. No abdominal abnormality. Electronically Signed: Ayleen Valle MD at 22:01 EDT Tel , Service support , Discharge Plan Triage Chief Complaint: Abd Pain ED Provider: Koby Mello Dx/Rx/DC Orders Clinical Impression: Abdominal pain, acute Instructions: ED Abdominal Pain Unkn Cause Fem Prescriptions: New dicyclomine 10 MG capsule 20 mg PO TIDAC Qty: 20 RF: 0 No Action lamotrigine 150 MG tablet 150 mg PO BID RF: 0 amlodipine 10 MG tablet 10 mg PO DAILY RF: 0 ipratropium-albuterol 3 ML solution for nebulization 3 ml inhalation Q4H PRN PRN (Reason: Sob &/Or Wheezing) RF: 0 metoprolol tartrate 25 MG tablet 100 mg PO BID RF: 0 cyanocobalamin (vitamin B-12) 500 MCG tablet 1,000 mcg PO DAILY RF: 0 omeprazole 20 MG capsule 20 mg PO DAILY RF: 0 estradiol 0.5 MG tablet 0.5 mg PO DAILY RF: 0 oxybutynin chloride 5 MG tablet 5 mg PO DAILY RF: 0 amitriptyline 100 MG tablet 100 mg PO DAILY RF: 0 cetirizine 10 MG capsule 10 mg PO DAILY RF: 0 Potassium Chloride 20 MEQ Tab.Er.Prt 80 meq PO DAILY RF: 0 albuterol sulfate 1 INHALER inhaler 2 puff inhalation Q4H PRN PRN (Reason: Sob &/Or Wheezing) RF: 0 prazosin 2 MG capsule 2 mg PO QHS RF: 0 duloxetine 60 MG capsule 60 mg PO DAILY RF: 0 ipratropium-albuterol 1 PUFF inhaler 1 puff inhalation 4X/DAY RF: 0 doxycycline monohydrate 100 MG capsule 100 mg PO BID Qty: 20 RF: 0 lorazepam [lorazepam] 1 MG tablet 1 mg PO TID Qty: 10 RF: 0 Primary Care Provider: Judit Vilchis NP Referrals: Judit Vilchis NP, [employer]IST-[employer] [Primary Care Provider] - 1-2 Days if not improving Disposition Disposition: Home, Self Care
[2021-01-28 20:10] LABS: Mucous, Urine 0 SEEN /hpf (<or=2+)
[2021-01-28 20:11] LABS: Color, Urine Yellow (Yellow); Glucose, Dipstick Normal (Normal); Ketone-Dipstick Negative (Negative); Leukocyte Esterase-Dipstick Negative /ul (Negative); Nitrite-Dipstick Negative (Negative); Occult Blood-Urine 10 /ul (Negative); Protein-Dipstick Negative (Negative); Urine Bilirubin Dipstick Negative (Negative); Urine Clarity Clear (Clear); Urine Urobilinogen Normal (Normal)
[2021-01-28 20:34] LABS: Red Blood Cells-Urine 0-5 SEEN /hpf (0-5); Squamous Epithelial Cells - UA 0-5 SEEN /hpf (5-10); White Blood Cells 0-5 SEEN /hpf (0-5)
[2021-01-28 20:35] LABS: Bacteria RARE /hpf (None Seen)
[2021-01-28] MEDS: Ondansetron 4 MG/2 ML Vial IV (20:47)
[2021-01-28] MEDS: Morphine 4 MG/ML Syringe IV (20:48)
[2021-01-28 20:51] LABS: Absolute Lymphocyte Count 3.31 X10^3/uL (0.83-4.51); Absolute Neutrophil Count 6.8 X10^3/uL (2.0-7.7); Basophil# 0.04 X10^3/uL; Basophil% 0.4 % (0-1); Eosinophil# 0.14 X10^3/uL; Eosinophils% 1.3 % (0-5); Hematocrit 38.9 % (37-47); Hemoglobin 13.1 g/dL (12.0-15.0); Lymphocyte # 3.31 X10^3/ul (0.83-4.51); Lymphocyte % 29.6 % (19-41); Mean Corp Hgb Conc 33.7 g/dL (32-36); Mean Corpuscular Hgb 27.2 pg (27.0-32.0); Mean Corpuscular Volume 80.9 fL (81-99); Mean Platelet Vol. 8.7 fl (6.2-12.0); Monocyte# 0.88 X10^3/uL; Monocyte% 7.9 % (0-10); NRBC Flagged by Analyzer 0 % (0-5); Neutrophil # 6.77 X10^3/uL (2.7-7.7); Neutrophil % 60.4 % (47-70); POSITIVE COUNT YES; Platelet Count 325 K/mm3 (150-450); RBC Distribution Width CV 14.2 % (11.6-14.6); RBC Distribution Width SD 41.8 fl (35.1-43.9); Red Blood Count 4.81 M/mm3 (4.2-5.4); White Blood Count 11.2 K/mm3 (4.4-11.0)
[2021-01-28 21:01] LABS: Differential Indicated SCAN CRITERIA MET
[2021-01-28 21:07] LABS: ALB/GLOB Ratio 0.7 RATIO (0.9-2.4); AST(SGOT) 11 U/L (15-37); Alanine Aminotransfer ALT/SGPT 17 U/L (13-56); Albumin, Serum 3.2 g/dL (3.2-5.0); Alkaline Phosphatase 108 U/L (45-117); Anion Gap 7 (5-15); BUN 7 mg/dL (7-18); BUN/Creat Ratio 7.3 RATIO (10-20); Calcium,Total 8.9 mg/dL (8.5-10.1); Chloride 103 mmol/L (98-107); Creatinine, Serum 0.95 mg/dL (0.55-1.02); EST Glomerular Filtration Rate 69 mL/min (>60); Est Glom Filt Rate - Afr Amer 83 mL/min (>60); Estimated Creatinine Clearance 65.12 ml/min; Globulin 4.5 g/dL (2.2-4.2); Glucose 130 mg/dL (74-106); Potassium 3.2 mmol/L (3.5-5.1); Protein, Total 7.7 g/dL (6.4-8.2); Sodium Level 134 mmol/L (136-145)
[2021-01-28 21:53] LABS: Differential Comment SCANNED; Platelet Estimate ADEQUATE (ADEQ); Red Cell Morphology NORM C+C NORMAL (NORM C&C)
[2021-01-28 22:50] VITALS: BP 137/89; PULSE 89; RESP 18; O2SAT 98
== END 2021-01-28 22:50 | disposition home or self-care (01) ==
PROVIDERS: Emergency Provider Emergency Medicine; PCP Nurse Practitioner Family
DX: R10.31 Right lower quadrant pain (principal); F17.210 Nicotine dependence, cigarettes, uncomplicated; I10 Essential (primary) hypertension; E78.00 Pure hypercholesterolemia, unspecified; K21.9 Gastro-esophageal reflux disease without esophagitis; F31.9 Bipolar disorder, unspecified; F41.9 Anxiety disorder, unspecified; Z90.710 Acquired absence of both cervix and uterus; Z90.49 Acquired absence of other specified parts of digestive tract; Z79.899 Other long term (current) drug therapy
CPT/HCPCS: 74177; 80053; 81001; 85025; 96374; 96375; 99285; Q9967; A4216; J2405

== ENCOUNTER → 2021-01-30 12:50 | Outpatient (CLI) | payer MEDICAID, SELFPAY ==
--- NOTE | 2021-01-30 13:20 | RAD_ITS ---
STUDY: X-RAY - LUMBOSACRAL SPINE REASON FOR EXAM: Female, 40 years old. BACK PAIN TECHNIQUE: 6 view(s) of the lumbosacral spine were obtained. COMPARISON: Comparison is made with prior study dated 03/31/2019. FINDINGS: Normal lumbar lordosis. There is no substantial scoliosis. There is normal alignment of the vertebrae. Normal vertebral bodies and endplates. Normal disc space heights. Normal bilateral sacral ala, sacroiliac joints, and visualized sacrum. Normal visualized soft tissue structures. RAD/Lumbar Spine 2 or 3 Views IMPRESSION: Normal x-ray examination of the lumbosacral spine. Electronically Signed: Alex Liang MD at 15:28 EDT , Service support ,
== END ==
PROVIDERS: PCP Nurse Practitioner Family; Referring Provider Anesthesiology Pain Medicine; Visit Provider Anesthesiology Pain Medicine
DX: M54.5 Low back pain (principal)
CPT/HCPCS: 72100

== ENCOUNTER 2021-03-07 19:25 | Emergency (ER) | payer MEDICAID, SELFPAY ==
[2021-03-07 19:25] VITALS: BP 170/94; PULSE 121; RESP 18; TEMP 36.1; O2SAT 97; BMI 32.9
--- NOTE | 2021-03-07 19:52 | RAD_ITS ---
STUDY: X-RAY - LUMBAR SPINE REASON FOR EXAM: Female, 40 years old. Fall last night and heard a pop. Back pain. TECHNIQUE: 3 view(s) of the lumbar spine were obtained. COMPARISON: None FINDINGS: Normal lumbar lordosis. There is no substantial scoliosis. There is a normal alignment of the vertebrae. Normal vertebral bodies and endplates. Normal disc space heights. There is no evidence of acute fracture or loss of vertebral axial height. The soft tissue structures are unremarkable. RAD/Lumbar Spine 2 or 3 Views IMPRESSION: No evidence of acute fracture or subluxation. Electronically Signed: Sabino Lima DO at 21:47 EDT Tel [phone], Service support ,
[2021-03-07] MEDS: Ibuprofen 600 MG Tablet PO (19:57)
[2021-03-07] MEDS: diazePAM 5 MG Tablet PO (19:57)
--- NOTE | 2021-03-07 20:35 | ED.VIS.BACK ---
HPI History of Present Illness Chief Complaint: Back Informant: patient Narrative Narrative: Presents reporting increasing back pain since yesterday. States was sitting she turned stating she felt a pop. Reports pain down the right leg. No loss of bowel or bladder control. States had back pain years ago however never pain down the legs. No medications taken today. Denies history of gastric ulcers or kidney injury. Prior similar symptoms: No PFSH PFSH Medical History Anxiety Asthma Bipolar disorder Depression GERD (gastroesophageal reflux disease) High cholesterol Hypertension Kidney stones Home Medications amlodipine 10 mg PO DAILY 02/16/16 [History Last Taken 02/16/16] lamotrigine 150 mg PO BID 02/16/16 [History Last Taken 02/16/16] ipratropium-albuterol 3 ml INHALATION Q4H PRN PRN 11/09/16 [History Last Taken Unknown] metoprolol tartrate 100 mg PO BID 11/09/16 [History Last Taken Unknown] Potassium Chloride 80 meq PO DAILY 03/31/19 [History Last Taken Unknown] amitriptyline 100 mg PO DAILY 03/31/19 [History Last Taken Unknown] cetirizine 10 mg PO DAILY 03/31/19 [History Last Taken Unknown] cyanocobalamin (vitamin B-12) 1,000 mcg PO DAILY 03/31/19 [History Last Taken Unknown] estradiol 0.5 mg PO DAILY 03/31/19 [History Last Taken Unknown] omeprazole 20 mg PO DAILY 03/31/19 [History Last Taken Unknown] oxybutynin chloride 5 mg PO DAILY 03/31/19 [History Last Taken Unknown] albuterol sulfate 2 puff INHALATION Q4H PRN PRN 07/11/19 [History Last Taken Unknown] duloxetine 60 mg PO DAILY 07/11/19 [History Last Taken Unknown] ipratropium-albuterol 1 puff INHALATION 4X/DAY 07/11/19 [History Last Taken Unknown] prazosin 2 mg PO QHS 07/11/19 [History Last Taken Unknown] doxycycline monohydrate 100 mg PO BID #20 cap 05/30/20 [Rx Last Taken Unknown] lorazepam 1 mg PO TID #10 tablet 11/24/20 [Rx Last Taken Unknown] dicyclomine 20 mg PO TIDAC #20 capsule 01/28/21 [Rx Last Taken Unknown] diazepam 5 mg PO Q8 PRN #10 tab 03/07/21 [Rx Last Taken Unknown] ibuprofen 600 mg PO Q6H PRN PRN #20 tab 03/07/21 [Rx Last Taken Unknown] Allergy/AdvReac Type Severity Reaction Status Date / Time acyclovir Allergy Hives Verified 01/28/21 19:30 cefdinir Allergy Hives Verified 01/28/21 19:30 ciprofloxacin [From Cipro] Allergy Hives Verified 01/28/21 19:30 codeine Allergy Hives Verified 01/28/21 19:30 [From Tylenol-Codeine #3] phenazopyridine Allergy Hives Verified 01/28/21 19:30 [From Pyridium] Sulfa (Sulfonamide Allergy Hives Verified 01/28/21 19:30 Antibiotics) benzonatate AdvReac Vomiting Verified 01/28/21 19:30 [From Tessalon Perlcatrachita] Surgical History History of hysterectomy Hx of cholecystectomy Social History Smoking Status: Current every day smoker tobacco type: cigarettes substance use type: does not use ROS ROS ED Constitutional Constitutional ED: Denies chills, fever(s) or sweats Eyes Eyes: Denies change in vision ENT ENT ED: Denies dysphagia or sore throat Cardiovascular Cardiovascular: Denies chest pain, leg edema, palpitations or racing heartbeat Respiratory/Chest Respiratory/Chest: Denies cough, dyspnea or dyspnea on exertion Gastrointestinal Gastrointestinal: Denies abdominal pain, diarrhea, nausea or vomiting Genitourinary Genitourinary ED: Denies dysuria, hematuria or urinary frequency Musculoskeletal Musculoskeletal: Reports back pain; Denies extremity pain or neck pain Integumentary Denies rash or wounds Neurologic Neurologic: Denies headache(s), paresthesias or weakness EXAM Physical Exam Const Vital Signs: 03/07/21 19:25 03/07/21 21:52 03/07/21 21:54 Temperature 96.9 F L Temperature Source Temporal Pulse Rate 121 H 88 88 Respiratory Rate 18 18 18 Blood Pressure 170/94 H 135/98 H Blood Pressure Mean 119 110 Pulse Ox 97 96 96 Oxygen Delivery Method Room Air Room Air Positive well nourished, well developed and obese Constitutional Narrative: Patient leaning to the left side sitting in the bed. General Appearance ED: well developed Nutritional Appearance: obese HEENT Reports moist mucous membranes normocephalic and atraumatic Eyes PERRL, EOMs intact bilaterally and conjunctivae normal General Eye ED: Yes normal appearance of both eyes Neck no lymphadenopathy and supple General: Negative for tenderness Chest Wall Chest: Negative for tenderness Resp normal respiratory effort and normal air movement Effort and Inspection: symmetric chest movement; Negative for respiratory distress Cardio regular rhythm and no murmurs Rate: tachycardic Peripheral Pulses: pulses 2+ throughout GI normal to inspection, nondistended, normoactive bowel sounds and non-tender Palpation: Negative for guarding or rebound tenderness present Back/Spine no CVA tenderness Back/Spine Narrative: Mid lumbar along with right paralumbar tenderness. There is no step-offs. Straight leg test was negative. 1+ patellar reflex. Extremity normal to inspection General Extremety ED: Negative for edema or tenderness General Extremity: Negative for edema Neuro oriented x3 and no sensory deficits noted Sensorium / Orientation: awake and alert Skin no rashes or lesions noted and no wounds MDM MDM MDM Narrative Medical decision making narrative: Patient no cauda equina symptoms. History concerning for sciatica symptoms. She was tachycardic on arrival with discomfort. She is treated with ibuprofen and Valium. With her midline back pain x-ray obtained reviewed by myself and read by radiology shows no acute process. Reevaluation she is feeling better. She is able to ambulate in the room. Heart rate improved. Prescriptions for symptom control with follow-up with her PCP closely for further treatment as an outpatient as needed. All questions were answered. Radiography X-Ray: LS SPine, Read by ED Physician and Read by Radiologist Diagnostic Testing: Clinical Impression(s) from Imaging Studies Lumbar Spine X-Ray 03/07/21 19:52 IMPRESSION: No evidence of acute fracture or subluxation. Electronically Signed: Sabino Lima DO at 21:47 EDT Tel [phone], Service support , Discharge Plan Triage Chief Complaint: Back ED Provider: Missael Still Dx/Rx/DC Orders Clinical Impression: Sciatica of right side, Back pain Instructions: ED Sciatica Prescriptions: New ibuprofen 600 MG tablet 600 mg PO Q6H PRN PRN (Reason: fever or pain) Qty: 20 RF: 0 diazepam [diazepam] 5 MG tablet 5 mg PO Q8 PRN (Reason: Muscle Spasm) Qty: 10 RF: 0 No Action lamotrigine 150 MG tablet 150 mg PO BID RF: 0 amlodipine 10 MG tablet 10 mg PO DAILY RF: 0 ipratropium-albuterol 3 ML solution for nebulization 3 ml inhalation Q4H PRN PRN (Reason: Sob &/Or Wheezing) RF: 0 metoprolol tartrate 25 MG tablet 100 mg PO BID RF: 0 cyanocobalamin (vitamin B-12) 500 MCG tablet 1,000 mcg PO DAILY RF: 0 omeprazole 20 MG capsule 20 mg PO DAILY RF: 0 estradiol 0.5 MG tablet 0.5 mg PO DAILY RF: 0 oxybutynin chloride 5 MG tablet 5 mg PO DAILY RF: 0 amitriptyline 100 MG tablet 100 mg PO DAILY RF: 0 cetirizine 10 MG capsule 10 mg PO DAILY RF: 0 Potassium Chloride 20 MEQ Tab.Er.Prt 80 meq PO DAILY RF: 0 albuterol sulfate 1 INHALER inhaler 2 puff inhalation Q4H PRN PRN (Reason: Sob &/Or Wheezing) RF: 0 prazosin 2 MG capsule 2 mg PO QHS RF: 0 duloxetine 60 MG capsule 60 mg PO DAILY RF: 0 ipratropium-albuterol 1 PUFF inhaler 1 puff inhalation 4X/DAY RF: 0 doxycycline monohydrate 100 MG capsule 100 mg PO BID Qty: 20 RF: 0 lorazepam [lorazepam] 1 MG tablet 1 mg PO TID Qty: 10 RF: 0 dicyclomine 10 MG capsule 20 mg PO TIDAC Qty: 20 RF: 0 Primary Care Provider: Judit Vilchis NP Referrals: Judit Vilchis NP, [employer] [Primary Care Provider] - 3-5 Days Disposition Disposition: Home, Self Care Discharge Date/Time: 03/07/21 21:55
[2021-03-07 21:52] VITALS: PULSE 88; RESP 18; O2SAT 96
[2021-03-07 21:54] VITALS: BP 135/98; PULSE 88; RESP 18; O2SAT 96
== END 2021-03-07 21:55 | disposition home or self-care (01) ==
PROVIDERS: Emergency Provider Emergency Medicine; PCP Nurse Practitioner Family
DX: M54.41 Lumbago with sciatica, right side (principal); I10 Essential (primary) hypertension; E78.00 Pure hypercholesterolemia, unspecified; J45.909 Unspecified asthma, uncomplicated; F17.210 Nicotine dependence, cigarettes, uncomplicated; E66.9 Obesity, unspecified; Z68.32 Body mass index [BMI] 32.0-32.9, adult; Z79.899 Other long term (current) drug therapy; K21.9 Gastro-esophageal reflux disease without esophagitis
CPT/HCPCS: 72100; 99283

== ENCOUNTER → 2021-03-20 09:48 | Outpatient (CLI) | payer MEDICAID, SELFPAY ==
--- NOTE | 2021-03-20 10:00 | RAD_ITS ---
STUDY: X-RAY - PELVIS AND RIGHT HIP REASON FOR EXAM: Right hip pain, no specific injury. TECHNIQUE: 2 views of the pelvis and hip. COMPARISON: None. FINDINGS: Normal visualized soft tissue structures. Normal bilateral iliac wings, sacroiliac joints and visualized sacrum. Normal bilateral superior and inferior pubic rami. Normal pubic symphysis. Normal bilateral ischial tuberosities. Normal visualized femoral head. Normal acetabulum. Normal hip joint. RAD/HIP, UNI W/ Pelvis 2-3 Views IMPRESSION: Normal x-ray examination of the right hip. Electronically Signed: Bartolo Ramírez MD at 10:46 EST Tel , Service support ,
== END ==
PROVIDERS: PCP Nurse Practitioner Family; Referring Provider Anesthesiology Pain Medicine; Visit Provider Anesthesiology Pain Medicine
DX: M25.551 Pain in right hip (principal)
CPT/HCPCS: 73502